=== PATIENT | female | born 1955 | race Caucasian/White ===

== ENCOUNTER 2022-01-04 12:30 | Outpatient (RCR) | payer OTHER, SELFPAY ==
--- NOTE | 2021-12-04 11:28 | PTOPEVAL ---
PHYSICAL THERAPY INITIAL EVALUATION. Thank you for referring Kina Martin to [facility].? The patient is scheduled to be seen for therapy? 2x/week for 4 weeks. Please review, sign, date and return this plan of care KEMAL. I agree with and certify that the following plan of care is medically necessary. Referring Physician Date Attending Provider: Elvis Everett MD *PT Outpatient Evaluation Start: 12/04/21 Evaluation Information Diagnosis Closed R ankle fracture Onset Sep 2021 Additional Evaluation Detail Pt ambulates into the clinic today with a front wheeled walker. Subjective Information Pt states in Sep she Query Text:As Reported By Patient/ fell and broke her ankle. Pt Family states she wore a boot and did not put any weight on it until the middle of October. Towards the end of Oct or beginning of Nov she was told she could not wear the boot and put all of her weight on it. Currently she is fully weightbearing but is unable to tolerate weight bearing. Pt has a history of R knee fractures with residual numbness and pain. She states decreased activity at baseline. Pt reports using a wheelchair around her house because it is easier to get around. Pain Assessment Right Ankle(s) Reported Pain Level 7 Pain Description Numbness,Sharp Pain Frequency Intermittent Lowest Pain Intensity 0 Greatest Pain Intensity 7 Pain Aggravating Factors Walking,Weight Bearing/ Standing Other Alleviating Interventions Aspirin 4x/day Ankle/Foot Range of Motion Right Ankle Dorsiflexion With Knee Flexed -12 Range of Motion - Active Ankle Dorsiflexion With Knee Flexed 0 Range of Motion - Passive Ankle Plantarflexion Range of Motion - Active 21 Ankle Plantarflexion Range of Motion - Passive 32 Ankle Eversion Range of Motion - Active 0 Ankle Eversion Range of Motion - Passive 8 Ankle Inversion Range of Motion - Active 0 Ankle Inversion Range of Motion - Passive 15 Ankle/Toe Range of Motion Limitations Muscle Length Restriction,Soft Tissue Restriction Ankle Range of Motion Comments Total active ROM is 9 degrees
--- NOTE | 2022-01-04 13:32 | PTOPEVAL ---
PHYSICAL THERAPY PROGRESS REPORT AND DISCHARGE NOTE. Thank you for referring Kina Martin to [facility].? The patient is to be discharged from skilled physical therapy services at this time. Please review, sign, date and return this plan of care KEMAL. I agree with and certify that the following plan of care is medically necessary. Referring Physician Date Attending Provider: Elvis Everett MD Evaluation Information Diagnosis Closed R ankle fracture Onset Sep 2021 Subjective Information Pt states she is doing better Query Text:As Reported By Patient/ than when she started. She Family states she can walk now which is no small miracle . She states she cleaned her floors yesterday but still had to take breaks cause the ankle was bothering her. Pain Assessment Right Ankle(s) Reported Pain Level 2 Greatest Pain Intensity 4 Lower Extremity Range of Motion Right Ankle Dorsiflexion With Knee Extension 2 active Ankle Dorsiflexion With Knee Extension 5 passive Ankle Dorsiflexion With Knee Flexed -8 active Ankle Dorsiflexion With Knee Flexed 6 passive Ankle Plantarflexion Range of Motion - 24 active Ankle Plantarflexion Range of Motion - 35 passive Ankle Eversion Range of Motion - Active 12 Ankle Eversion Range of Motion - Passive 18 Ankle Inversion Range of Motion - Active 18 Ankle Inversion Range of Motion - passive 27 Ankle/Toe Range of Motion Limitations Muscle Length Restriction,Soft Tissue Restriction Lower Extremity Muscle Strength Testing Gross Lower Extremity Strength Grossly 4-/5 in the R ankle R SLS: ~4 L SLS: ~3 Balance Assessment Time Up Go (TUG) Timed Up and Go Test (TUG) (Seconds) 10 Assistive Devices Walker, Wheeled Comments Initially: 17s with FWW 01/04/22: 10s with no AD 5 Time Sit to Stand Time in Seconds 11 5 Time Sit to Stand Comments Initially: 13s Without use of Query Text:Normative Data: If Greater UEs Than 15 Seconds, 74% Increase Risk for 01/04/22: 11s without use of UEs Recurrent Falls Gait Assessment Gait Pattern Observed No Heel Strike - Left,No Heel Strike - Right,Uneven Sera Other Gait Observations Out toeing, bilaterally R>L. Equal heel strike, equal step length, equal stride length. No trunk lean but increased force when stepping with L compared to R 2 Minut
== END 2022-01-05 14:33 | disposition home or self-care (01) ==
LOC: ANHPT 12:30
PROVIDERS: PCP Family Medicine; Referring Provider Orthopaedic Surgery; Visit Provider Orthopaedic Surgery
DX: S82.851D Displaced trimalleolar fracture of right lower leg, subsequent encounter for closed fracture with routine healing (principal)
CPT/HCPCS: 97110; 97112; 97116; 97140; 97161; 97530